=== PATIENT | male | born 1935 | race Caucasian/White ===

== ENCOUNTER → 2016-12-05 | Outpatient (CLI) | payer MEDICARE, OTHER ==
[~2016-12-05] MED LIST: REGADENOSON 0.4 MG/5 ML SYRINGE ONE
== END | disposition home or self-care (01) ==
LOC: CFH 08:36
PROVIDERS: ATTEND Internal Medicine Cardiovascular Disease
DX: R06.02 Shortness of breath (principal); R42 Dizziness and giddiness; R07.9 Chest pain, unspecified
CPT/HCPCS: 78452; 93017; A9502; J2785

== ENCOUNTER 2019-07-01 16:15 | Inpatient (IN) | payer MEDICARE, OTHER ==
[~2019-07-01] VITALS: Ht 175.3 cm; Wt 70.2 kg
[2019-07-01] MEDS ORDERED: LORazepam 2 MG/ML, 1ML IV ONE (16:30)
--- NOTE | 2019-07-01 17:05 | NUR ---
report to ANGELICA Carpenter, to assume care at this time.
--- NOTE | 2019-07-01 17:06 | NUR ---
pt to ed for altered mental status. per family and ems, pt has hx on dementia and has been seeing an unknown neurologist for 2 years. pt has not slept since 0700 06/30. yesterday at 1430, pt took car keys and left home. pt was found this am at 0530 in [place], [place], driving the wrong way on the road. pt was transferred back to [place] where he became more altered and anxious per his . pt presents calm and cooperative, a&o to self only. Dr. Lopez to bs. orders received. iv established and labs drawn. awaiting resutls.
[2019-07-01 17:08] LABS: BASOPHILS # (AUTO) 0.02 x10^3/uL (0-0.1); BASOPHILS % (AUTO) 0 % (0-1); EOSINOPHILS % (AUTO) 2 % (1-7); LYMPHOCYTES # (AUTO) 1.14 x10^3/uL (1-3.4); LYMPHOCYTES % (AUTO) 16 % (22-44); MD NO; MEAN CORPUSCULAR HEMOGLOBIN 36.7 pg (27.5-34.5); MEAN CORPUSCULAR HGB CONC 33.7 g/dL (33.2-36.2); MONOCYTES % (AUTO) 10 % (2-9); NEUTROPHILS # (AUTO) 5.25 x10^3/uL (1.8-6.8); NEUTROPHILS % (AUTO) 73 % (42-75); PLATELET COUNT 245 x10^3/uL (130-400); RED BLOOD COUNT 3.39 x10^6/uL (4.38-5.82); RED CELL DISTRIBUTION WIDTH 12.8 % (9.4-14.8)
[2019-07-01] MEDS ORDERED: LORazepam 2 MG/ML, 1ML ONE (17:10)
--- NOTE | 2019-07-01 17:19 | NUR ---
UA OBTAINED, SENT PROVIDED WITH WATER/SALTINES. PATIENT TOLERATED pROVIDED WITH ADDITIONAL BLANKETS/PILLOW MEDICATED PER EMAR, THEN ROOM LIGHTS DIMMED POC CLARIFIED WITH PROVIDER-TO ATTEMPT TO ADMIT TO [facility] UPDATED VSS ON PROFESSOR OF COMMUNICATION AND WRITING
--- NOTE | 2019-07-01 17:38 | NUR ---
Spoke with Tamar, social welfare administrator, as requested by Dr. Nielsen for assistance with appropriate disposition planning. Tamar to come to department to discuss plan of care.
[2019-07-01 17:48] LABS: CULTURE INDICATED? YES; MICROSCOPIC INDICATED
[2019-07-01 17:53] LABS: AMPHETAMINE SCREEN, URINE Negative (Negative); BARBITURATE SCREEN, URINE Negative (Negative); BENZODIAZEPINE SCREEN, URINE Negative (Negative); CANNABINOID SCREEN, URINE Negative (Negative); COCAINE SCREEN, URINE Negative (Negative); METHADONE SCREEN, URINE Negative (Negative); OPIATE SCREEN, URINE Negative (Negative)
--- NOTE | 2019-07-01 18:01 | NUR ---
lab at bedside to draw lab-prior sample hemolyzed
--- NOTE | 2019-07-01 18:11 | NUR ---
[facility] BOB AT BEDSIDE-PROVIDING RESOURCES TO UTILIZE AT HOME WITH LAB REVIEW-[facility] NOTED PROVIDER TO ORDER ABX SHORTLY
[2019-07-01 18:17] LABS: ALANINE AMINOTRANSFERASE 21 U/L (12-78); ALBUMIN 3.3 g/dL (3.4-5.0); ANION GAP 7 mmol/L (5-15); CALCIUM 8.5 mg/dL (8.5-10.1); CHLORIDE 106 mmol/L (98-107); CREATININE 0.89 mg/dL (0.7-1.3)
[2019-07-01 18:27] LABS: ALKALINE PHOSPHATASE 135 U/L (45-117); BILIRUBIN,TOTAL 0.9 mg/dL (0.2-1.0); TOTAL PROTEIN 7.9 g/dL (6.4-8.2)
--- NOTE | 2019-07-01 19:30 | NUR ---
Provider reminded to placed admit/abx orders
[2019-07-01] MEDS ORDERED: CEFTRIAXONE PMX 1GM/50ML 50 ML IV ONE (20:00)
[2019-07-01] MEDS ORDERED: CEFTRIAXONE PMX 1GM/50ML 50 ML ONE (20:02)
--- NOTE | 2019-07-01 20:07 | NUR ---
FLOAT NOTE: ANTIBIOTICS STARTED PER MD ORDER. NO BLOOD CULTURES NEEDED PER DR. ODLL.
--- NOTE | 2019-07-01 20:51 | NUR ---
Rocephin infusion complete at 2049 EMT at bedside to transport patient to Unit
[2019-07-01] MEDS ORDERED: LABETALOL 5MG/ML, 20ML IVPush PRN (21:00)
[2019-07-01] MEDS ORDERED: ONDANSETRON 2MG/ML, 2ML IVPush PRN (21:00)
[2019-07-01] MEDS ORDERED: ACETAMINOPHEN 325 MG TABLET PO PRN (21:00)
[2019-07-01] MEDS ORDERED: TRAZODONE 50MG TABLET PO PRN (21:00)
[2019-07-01] MEDS: HEPARIN 5,000 UNITS/ML, 1ML SQ SCH (22:45)
[2019-07-01 22:53] VITALS: BP 120/69
[2019-07-02 01:51] VITALS: BP 121/70
[2019-07-02 08:21] VITALS: BP 121/76
[2019-07-02] MEDS: SENNA/DOCUSATE TABLET PO SCH (08:37)
--- NOTE | 2019-07-02 12:00 | NUR ---
REC: Reg/thins; no orange sheet indicated Addendum: 07/02/19 at 1200 by Daphne PIERRE Amended: Links added.
[2019-07-02 12:51] VITALS: BP_SYST 84; BP_SYST 96; BP_DIAS 57; BP_DIAS 63
[2019-07-02] MEDS: HEPARIN 5,000 UNITS/ML, 1ML SQ SCH ×2 (13:00→20:22)
[2019-07-02 18:50] VITALS: BP 98/62
[2019-07-02] MEDS: CEFTRIAXONE PMX 1GM/50ML 50 ML IV SCH (19:59)
[2019-07-03 00:01] VITALS: BP 113/68
[2019-07-03] MEDS: HEPARIN 5,000 UNITS/ML, 1ML SQ SCH ×3 (04:55→20:11)
[2019-07-03 06:10] LABS: ANION GAP 8 mmol/L (5-15); CALCIUM 8.7 mg/dL (8.5-10.1); CHLORIDE 109 mmol/L (98-107)
[2019-07-03 06:14] LABS: ALANINE AMINOTRANSFERASE 30 U/L (12-78); ALKALINE PHOSPHATASE 129 U/L (45-117); BILIRUBIN,TOTAL 0.7 mg/dL (0.2-1.0); CREATININE 0.98 mg/dL (0.7-1.3); TOTAL PROTEIN 7.5 g/dL (6.4-8.2)
[2019-07-03 07:55] VITALS: BP 95/56
[2019-07-03] MEDS: SENNA/DOCUSATE TABLET PO SCH (08:29)
--- NOTE | 2019-07-03 13:59 | NUR ---
REC GROUND/THIN LIQUIDS; ORANGE SHEET WITH DIET RECS AND SWALLOW STRATEGIES POSTED AT BEDSIDE. Addendum: 07/03/19 at 1359 by Ada PIERRE Amended: Links added.
[2019-07-03 14:00] VITALS: BP 104/64
[2019-07-03 19:58] VITALS: BP 111/69
[2019-07-03] MEDS: CEFTRIAXONE PMX 1GM/50ML 50 ML IV SCH (20:02)
[2019-07-04 02:01] VITALS: BP 111/60
[2019-07-04] MEDS: HEPARIN 5,000 UNITS/ML, 1ML SQ SCH (06:02)
[2019-07-04] MEDS: SENNA/DOCUSATE TABLET PO SCH (07:47)
[2019-07-04 07:56] VITALS: BP 123/69
[2019-07-04] MEDS ORDERED: ACET325T26 PO (09:57)
[2019-07-04] MEDS ORDERED: TRAZ50TA66 PO (09:57)
[2019-07-04] MEDS ORDERED: HEPA50002 SQ (09:57)
[2019-07-04] MEDS ORDERED: CEPH-368 PO (11:38)
== END 2019-07-04 12:28 | disposition home or self-care (01) | DRG 689 ==
LOC: ED 17:35 → UNDOADMIN 20:39 → EDIP 20:39 → 3N 20:56 → DCLOUNGE 07-04 12:22
PROVIDERS: ADMIT Family Medicine; ATTEND Family Medicine
DX: N30.90 Cystitis, unspecified without hematuria (principal); G93.41 Metabolic encephalopathy; F03.90 Unspecified dementia, unspecified severity, without behavioral disturbance, psychotic disturbance, mood disturbance, and anxiety; R13.10 Dysphagia, unspecified; D75.89 Other specified diseases of blood and blood-forming organs; G47.00 Insomnia, unspecified; D53.9 Nutritional anemia, unspecified; R74.8 Abnormal levels of other serum enzymes; R53.81 Other malaise
CPT/HCPCS: 36415; 80053; 80307; 81001; 82607; 84443; 85025; 87086; 96365; G0378; J0696; J1644; J2060